=== PATIENT | female | born 1980 | race Caucasian/White ===

== ENCOUNTER 2020-07-30 17:05 | Emergency (ER) | payer OTHER ==
[~2020-07-30] VITALS: Ht 175.3 cm; Wt 72.7 kg
[2020-07-30 17:11] VITALS: BP 130/90; TEMP 96.3
[2020-07-30] MEDS ORDERED: ATARAX 25MG25 MG/TAB PO ×2 (17:49→18:10)
[2020-07-30] MEDS ORDERED: LOPRESSOR 225 MG/TAB PO ×2 (17:50→18:10)
[2020-07-30] MEDS ORDERED: XANAX XR0.5 MG PO ×2 (17:52→18:10)
[2020-07-30] MEDS ORDERED: EFFEXOR-XR150 MG (17:52)
[2020-07-30] MEDS ORDERED: NEURONTIN100 MG/CAP (17:52)
[2020-07-30] MEDS ORDERED: SEROQUEL50 MG PO ×2 (17:53→18:10)
[2020-07-30] MEDS ORDERED: EFFEXOR-XR150 MG PO (18:10)
[2020-07-30] MEDS ORDERED: NEURONTIN100 MG/CAP PO (18:10)
[2020-07-30 18:28] VITALS: PULSE 98
== END 2020-07-30 18:28 | disposition home or self-care (01) ==
LOC: COL.ER 17:05
DX: Z76.0 Encounter for issue of repeat prescription (principal); F17.290 Nicotine dependence, other tobacco product, uncomplicated; F31.9 Bipolar disorder, unspecified; Z79.899 Other long term (current) drug therapy; Z79.84 Long term (current) use of oral hypoglycemic drugs

== ENCOUNTER → 2020-10-11 | Outpatient (CLI) | payer MEDICAID ==
[~2020-10-11] MED LIST: ATARAX 25MG25 MG/TAB PO; EFFEXOR-XR150 MG; EFFEXOR-XR150 MG PO; LOPRESSOR 225 MG/TAB PO; NEURONTIN100 MG/CAP; NEURONTIN100 MG/CAP PO; SEROQUEL50 MG PO; XANAX XR0.5 MG PO
== END ==
LOC: COL.RAD 11:50
DX: E04.2 Nontoxic multinodular goiter (principal)

== ENCOUNTER 2021-01-25 01:43 | Emergency (ER) | payer MEDICAID ==
[~2021-01-25] VITALS: Ht 175.3 cm; Wt 88.6 kg
[2021-01-25 02:32] LABS: BASO % 0.4 % (0.0-2.0); EOS # 0.1 (0.0-0.7); EOS % 1.4 % (0-4.0); GRAN # 3.1 (1.4-6.5); GRAN % 43.3 % (42.2-75.2); HEMATOCRIT 39.1 % (37.0-47.0); HEMOGLOBIN 13.2 g/dl (12.5-16.0); LYMPH # 3.4 (1.2-3.4); LYMPH % 47.4 % (20.0-51.0); MEAN CELL VOLUME 95 fl (80.0-100.0); MEAN CORPUSCULAR HEMOGLOBIN 32 pg (27.0-31.0); MEAN CORPUSCULAR HGB CONC 34 g/dl (33.0-37.0); MEAN PLATELET VOLUME 9.7 fl (7.4-10.4); MONO # 0.5 (0.1-0.6); MONO % 7.4 % (1.7-9.3); PLATELET COUNT 215 K/mm3 (130-400); RED BLOOD COUNT 4.12 M/mm3 (4.10-5.30); REDCELL DISTRIBUTION WIDTH-CV 14.3 % (11.5-14.5)
[2021-01-25 02:45] LABS: ALANINE AMINOTRANSFERASE 30 U/L (4-34); ALBUMIN 4.6 gm/dL (3.5-5.0); ALKALINE PHOSPHATASE 109 U/L (50-136); ANION GAP 10 mmol/L (7-16); AST,SGOT 39 U/L (15-37); BILIRUBIN,TOTAL 0.3 mg/dL (0.0-1.0); BLOOD UREA NITROGEN 13 mg/dL (7-17); CALCIUM 8.9 mg/dL (8.4-10.2); CARBON DIOXIDE 25 mmol/L (22-30); CHLORIDE 107 mmol/L (98-107); GLUCOSE 98 mg/dL (74-106); POTASSIUM 3.6 mmol/L (3.4-5.0); SODIUM 142 mmol/L (137-145)
[2021-01-25 02:58] LABS: TROPONIN-I < 0.012 ng/mL (0.000-0.035)
[2021-01-25 03:00] LABS: TRICYCLIC ANTIDEPRESS URINE NEGATIVE
[2021-01-25 05:05] VITALS: BP 120/85; PULSE 116
== END 2021-01-25 05:05 | disposition home or self-care (01) ==
LOC: COL.ER 01:43
PROVIDERS: Emergency Medicine
DX: S96.911A Strain of unspecified muscle and tendon at ankle and foot level, right foot, initial encounter (principal); R60.0 Localized edema; R06.02 Shortness of breath; R00.0 Tachycardia, unspecified; F17.290 Nicotine dependence, other tobacco product, uncomplicated; Z32.02 Encounter for pregnancy test, result negative; Z88.0 Allergy status to penicillin; X50.1XXA Overexertion from prolonged static or awkward postures, initial encounter
CPT/HCPCS: J7120; Q9967

== ENCOUNTER 2021-09-12 14:58 | Emergency (ER) | payer MEDICAID ==
[~2021-09-12] VITALS: Ht 175.3 cm; Wt 90.9 kg
[2021-09-12 15:11] VITALS: TEMP 98.4
[2021-09-12 15:42] LABS: BASO # 0.1 K/mm3 (0.0-0.2); BASO % 0.7 % (0.0-2.0); EOS % 0.1 % (0-4.0); GRAN # 5.3 K/mm3 (1.4-6.5); GRAN % 64.1 % (42.2-75.2); HEMATOCRIT 46.1 % (37.0-47.0); HEMOGLOBIN 15.4 g/dl (12.5-16.0); LYMPH # 2.3 K/mm3 (1.2-3.4); LYMPH % 27.8 % (20.0-51.0); MEAN CELL VOLUME 99 fl (80.0-100.0); MEAN CORPUSCULAR HEMOGLOBIN 33 pg (27.0-31.0); MEAN CORPUSCULAR HGB CONC 33 g/dl (33.0-37.0); MEAN PLATELET VOLUME 10.1 fl (7.4-10.4); MONO # 0.6 K/mm3 (0.1-0.6); MONO % 6.9 % (1.7-9.3); PLATELET COUNT 200 K/mm3 (130-400); RED BLOOD COUNT 4.64 M/mm3 (4.10-5.30); REDCELL DISTRIBUTION WIDTH-CV 13.3 % (11.5-14.5)
[2021-09-12 16:01] LABS: ALBUMIN 4.7 gm/dL (3.5-5.0); BILIRUBIN,TOTAL 0.8 mg/dL (0.2-1.2); CALCIUM 9.9 mg/dL (8.4-10.2); CREATININE, serum 0.89 mg/dL (0.57-1.11); POTASSIUM 3.5 mmol/L (3.5-4.5); TOTAL PROTEIN 8.8 gm/dL (6.2-8.1)
[2021-09-12 16:24] LABS: COLLECTION METHOD CLEAN CATCH
[2021-09-12 16:31] LABS: MUCOUS Present /lpf; PH 5 (5-8); URINE APPEARANCE Cloudy; URINE BACTERIA None Seen /hpf; URINE BILIRUBIN Negative (NEGATIVE); URINE BLOOD 2+ (NEGATIVE); URINE COLOR Yellow; URINE GLUCOSE Negative (NEGATIVE); URINE KETONE 2+ (NEGATIVE); URINE LEUKOCYTE ESTERASE Negative (NEGATIVE); URINE NITRATE Negative (NEGATIVE); URINE PROTEIN(semi-quant) 2+ (NEGATIVE)
[2021-09-12] MEDS ORDERED: ZOFRAN ODT4 MG PO (16:41)
[2021-09-12 17:10] VITALS: BP 141/85; PULSE 70
== END 2021-09-12 17:20 | disposition home or self-care (01) ==
LOC: COL.ER 14:58
PROVIDERS: Emergency Medicine
DX: R11.10 Vomiting, unspecified (principal); R74.01 Elevation of levels of liver transaminase levels; F32.A Depression, unspecified; F41.9 Anxiety disorder, unspecified; Z79.899 Other long term (current) drug therapy; Z20.822 Contact with and (suspected) exposure to COVID-19
CPT/HCPCS: J2405; J7030

== ENCOUNTER 2021-11-22 22:09 | Emergency (ER) | payer MEDICAID ==
[~2021-11-22] VITALS: Ht 175.3 cm; Wt 96.4 kg
[~2021-11-22 22:09] MED LIST changes: +ZOFRAN ODT4 MG PO
[2021-11-22 22:13] VITALS: TEMP 98.2
[2021-11-22 23:45] VITALS: BP 136/96; PULSE 87
== END 2021-11-22 23:45 | disposition home or self-care (01) ==
LOC: COL.ER 22:09
DX: S61.211A Laceration without foreign body of left index finger without damage to nail, initial encounter (principal); F41.9 Anxiety disorder, unspecified; Z79.899 Other long term (current) drug therapy; Z23 Encounter for immunization; W26.9XXA Contact with unspecified sharp object(s), initial encounter

== ENCOUNTER 2021-12-10 15:56 | Emergency (ER) | payer MEDICAID ==
[~2021-12-10] VITALS: Ht 175.3 cm; Wt 95.0 kg
[2021-12-10 16:07] VITALS: TEMP 98.2
[2021-12-10 17:01] LABS: BASO # 0.1 K/mm3 (0.0-0.2); BASO % 0.8 % (0.0-2.0); EOS % 0.3 % (0.0-4.0); GRAN # 3.8 K/mm3 (1.4-6.5); GRAN % 62.6 % (42.2-75.2); HEMATOCRIT 42.1 % (37.0-47.0); HEMOGLOBIN 14.3 g/dl (12.5-16.0); LYMPH # 1.6 K/mm3 (1.2-3.4); LYMPH % 27.1 % (20.0-51.0); MEAN CELL VOLUME 99 fl (80.0-100.0); MEAN CORPUSCULAR HEMOGLOBIN 34 pg (27-31); MEAN CORPUSCULAR HGB CONC 34 g/dl (33.0-37.0); MEAN PLATELET VOLUME 10.5 fl (7.4-10.4); MONO # 0.5 K/mm3 (0.1-0.6); MONO % 8.9 % (1.7-9.3); PLATELET COUNT 197 K/mm3 (130-400); RED BLOOD COUNT 4.26 M/mm3 (4.10-5.30); REDCELL DISTRIBUTION WIDTH-CV 13.9 % (11.5-14.5)
[2021-12-10 17:13] LABS: ALBUMIN 4.6 gm/dL (3.5-5.0); BILIRUBIN,TOTAL 0.8 mg/dL (0.2-1.2); CREATININE, serum 0.79 mg/dL (0.57-1.11); POTASSIUM 4.2 mmol/L (3.5-4.5); TOTAL PROTEIN 8.4 gm/dL (6.2-8.1)
[2021-12-10] MEDS ORDERED: PHENERGAN 25 TA25 MG PO (18:29)
[2021-12-10 18:51] VITALS: BP 159/98; PULSE 98
== END 2021-12-10 18:51 | disposition home or self-care (01) ==
LOC: COL.ER 15:56
PROVIDERS: Nurse Practitioner
DX: R11.2 Nausea with vomiting, unspecified (principal); N64.4 Mastodynia; Z98.84 Bariatric surgery status; Z20.822 Contact with and (suspected) exposure to COVID-19
CPT/HCPCS: J1885; J2550; J7030

== ENCOUNTER → 2021-12-24 | Outpatient (CLI) | payer MEDICAID ==
[~2021-12-24] MED LIST changes: +PHENERGAN 25 TA25 MG PO
== END ==
LOC: COL.RAD 06:59
DX: R11.2 Nausea with vomiting, unspecified (principal); R13.10 Dysphagia, unspecified
CPT/HCPCS: A9541

== ENCOUNTER 2022-03-15 09:27 | Emergency (ER) | payer MEDICAID ==
[~2022-03-15] VITALS: Ht 172.7 cm; Wt 90.9 kg
[2022-03-15 09:32] VITALS: TEMP 98
[2022-03-15 10:12] LABS: BASO # 0.1 K/mm3 (0.0-0.2); EOS % 0.1 % (0.0-4.0); GRAN # 6.3 K/mm3 (1.4-6.5); GRAN % 77.2 % (42.2-75.2); HEMATOCRIT 42.8 % (37.0-47.0); HEMOGLOBIN 14.9 g/dl (12.5-16.0); LYMPH # 1.3 K/mm3 (1.2-3.4); LYMPH % 15.3 % (20.0-51.0); MEAN CELL VOLUME 97 fl (80.0-100.0); MEAN CORPUSCULAR HEMOGLOBIN 34 pg (27-31); MEAN CORPUSCULAR HGB CONC 35 g/dl (33.0-37.0); MONO # 0.5 K/mm3 (0.1-0.6); MONO % 5.9 % (1.7-9.3); PLATELET COUNT 196 K/mm3 (130-400); RED BLOOD COUNT 4.42 M/mm3 (4.10-5.30); REDCELL DISTRIBUTION WIDTH-CV 14.5 % (11.5-14.5)
[2022-03-15 10:32] LABS: ALBUMIN 4.4 gm/dL (3.5-5.0); CALCIUM 9.5 mg/dL (8.4-10.2); CREATININE, serum 0.78 mg/dL (0.57-1.11)
[2022-03-15 11:12] VITALS: BP 116/89; PULSE 99
== END 2022-03-15 11:12 | disposition home or self-care (01) ==
LOC: COL.ER 09:27
PROVIDERS: Student in an Organized Health Care Education/Training Program
DX: R11.2 Nausea with vomiting, unspecified (principal)
CPT/HCPCS: J2550; J7030

== ENCOUNTER 2022-08-17 20:03 | Emergency (ER) | payer MEDICAID ==
[~2022-08-17] VITALS: Ht 177.8 cm; Wt 93.2 kg
[2022-08-17 20:14] VITALS: TEMP 98.4
[2022-08-17] MEDS ORDERED: NORCO 325 MG-51 TAB PO (21:21)
[2022-08-17 21:30] VITALS: BP 105/68; PULSE 94
== END 2022-08-17 21:45 | disposition home or self-care (01) ==
LOC: COL.ER 20:03
DX: S93.402A Sprain of unspecified ligament of left ankle, initial encounter (principal); Z28.310 Unvaccinated for COVID-19; W10.9XXA Fall (on) (from) unspecified stairs and steps, initial encounter
CPT/HCPCS: J2405; J3010; J7030

== ENCOUNTER 2022-08-22 22:57 | Emergency (ER) | payer MEDICAID ==
[~2022-08-22] VITALS: Ht 175.3 cm; Wt 93.2 kg
[~2022-08-22 22:57] MED LIST changes: +NORCO 325 MG-51 TAB PO
[2022-08-22 23:03] VITALS: TEMP 97.1
[2022-08-23 01:05] VITALS: BP 154/78; PULSE 101
== END 2022-08-23 01:05 | disposition home or self-care (01) ==
LOC: COL.ER 22:57
DX: S93.402A Sprain of unspecified ligament of left ankle, initial encounter (principal); F17.210 Nicotine dependence, cigarettes, uncomplicated; Z28.310 Unvaccinated for COVID-19; W18.30XA Fall on same level, unspecified, initial encounter
CPT/HCPCS: J1790; J2270; J7120

== ENCOUNTER 2023-07-14 14:15 | Outpatient (RCR) | payer MEDICAID | END 2023-07-30 | disposition home or self-care (01) | LOC: WSPT | DX: S93.491D Sprain of other ligament of right ankle, subsequent encounter (principal) ==

== ENCOUNTER → 2023-09-08 | Outpatient (CLI) | payer MEDICAID | LOC: MC.RAD 14:45 | DX: Z12.31 Encounter for screening mammogram for malignant neoplasm of breast (principal) ==

== ENCOUNTER → 2023-09-08 | Outpatient (CLI) | payer MEDICAID | LOC: MC.RAD 13:45 → COL.RAD 13:45 | DX: M51.16 Intervertebral disc disorders with radiculopathy, lumbar region (principal); M51.17 Intervertebral disc disorders with radiculopathy, lumbosacral region ==